=== PATIENT | female | born 1985 | race Caucasian/White ===

== ENCOUNTER 2016-08-20 14:58 | Emergency (ER) | payer BC, OTHER ==
--- NOTE | 2016-08-20 17:17 | Ultrasound Report ---
EXAM: LEFT LOWER EXTREMITY VENOUS ULTRASOUND EXAM DATE: 08/20/2016 04:47 PM. CLINICAL HISTORY: Calf pain after travel. COMPARISON: None. TECHNIQUE: Real-time sonographic vascular imaging was performed by the cardiac cath technician through the lower extremity utilizing both color-flow and Doppler spectral analysis. Multiple access service representative static lulu ges were saved for review. FINDINGS: Common Femoral Vein (CFV): Normal. CFV-GSV Junction: Normal. Profunda Femoral Vein (PFV): Normal. Femoral Vein (FV) Prox: Normal. Femoral Vein (FV) Mid: Normal. Femoral Vein (FV) Dist: Normal. Popliteal Vein: Normal. Posterior Tibial Veins: Normal. Peroneal Veins: Normal. Other: None. IMPRESSION: No evidence for deep venous thrombosis. [facility] Referring Provider Line: [phone] SITE ID: [id number]
--- NOTE | 2016-08-20 17:59 | ED Physician Documentation ---
PD HPI LOWER EXT INJURY - Stated complaint Stated Complaint: LEG PAIN - Chief complaint Chief Complaint: Ext Problem - History obtained from History obtained from: Patient - History of Present Illness PD HPI LOW EXT INJURY LOCATION: Left, Knee (popliteal area), Calf Type of injury: Other (she was in long car ride about a month ago and has had aching in calf for 2 weeks. Concerned about DVT, which she had before after . Was on COumadin 3 months and then just ASA since.). No: Fall, Twist Timing - onset: How many weeks ago (2) Timing - duration: Weeks (2) Timing - details: Gradual onset, Still present, Waxing and waning Improved by: No: Rest Worsened by: Palpating. No: Moving Associated symptoms: Swelling. No: Weakness, Numbness Contributing factors: No: Anticoagulated, Prior ortho surgery Similar symptoms before: Diagnosis (DVT few years ago) Recently seen: Not recently seen Review of Systems Constitutional: denies: Fever, Chills Cardiac: denies: Chest pain / pressure, Palpitations Respiratory: denies: Dyspnea, Cough PD PAST MEDICAL HISTORY - Past Medical History Cardiovascular: Hypertension Respiratory: None Neuro: None Endocrine/Autoimmune: Type 1 diabetes, HyPOthyroidism GI: None [employer]GER: None : None HEENT: None Psych: Depression Musculoskeletal: None Derm: None - Past Surgical History 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 - Present Medications Home Medications: Ambulatory Orders Medication Instructions Recorded Confirmed Insulin Aspart [Novolog] 08/11/14 08/11/14 Levothyroxine [Synthroid] 112 mcg PO DAILY 08/11/14 08/11/14 Losartan Potassium 100 mg PO DAILY 08/20/16 08/20/16 Sertraline [Zoloft] 25 mg PO DAILY 08/20/16 08/20/16 - Allergies Allergies/Adverse Reactions: Allergies Allergy/AdvReac Type Severity Reaction Status Date / Time No Known Drug Allergies Allergy Verified 08/20/16 18:01 - Social History Does the pt smoke?: No Smoking Status: Never smoker Does the pt drink ETOH?: No Does the pt have substance abuse?: No - Immunizations Immunizations are current?: No - POLST Patient has POLST: No PD ED PE NORMAL - Vitals Vital signs reviewed: Yes - General General: Alert and oriented X 3, No acute distress, Well developed/nourished - HEENT HEENT: PERRL (nonicteric) - Neck Neck: Supple, no meningeal sign, No adenopathy - Cardiac Cardiac: RRR, No murmur - Abdomen Abdomen: Soft, Non tender Results - Vitals Vitals: Oxygen O2 Source Room air - Rads (name of study) duplex lower ext Radiology: Prelim report reviewed (no DVT) PD MEDICAL DECISION MAKING - ED course Complexity details: reviewed results, considered differential (concern for DVT so got U/S with high pretest probability, and this was negative. She is tender at medial hamstring in popliteal area. Presume muscle strain/spasms. ), d/w patient Departure - Departure Disposition: 01 Home, Self Care Clinical Impression: Popliteal pain, Muscle strain Clinical Impression: (Ruled Out): Deep vein thrombosis Condition: Stable Record reviewed to determine appropriate education?: Yes Instructions: ED Strain Muscle Ext Comments: Heat and gentle stretching for the hamstring/back of knee muscles. Ibuprofen or Naproxen twice daily. Add Tylenol for pain if needed. Right now the ultrasound does not show any blood clots. This is highly sensitive for clots but not 100% ( not much is). So if you have increasing pain, swelling of the foot/ankle over the next few days, then we can repeat the ultrasound in a week or so to look again. For now, will presume muscular pain. Discharge Date/Time: 08/20/16 18:22
[2016-08-20 18:24] VITALS: BP 123/83
== END 2016-08-20 18:22 | disposition home or self-care (01) ==
LOC: ED 14:58
DX: M25.562 Pain in left knee (principal); S86.912A Strain of unspecified muscle(s) and tendon(s) at lower leg level, left leg, initial encounter; X58.XXXA Exposure to other specified factors, initial encounter; I10 Essential (primary) hypertension; E03.9 Hypothyroidism, unspecified; E10.9 Type 1 diabetes mellitus without complications
CPT/HCPCS: 99282; 99283